=== PATIENT | female | born 1985 | race Caucasian/White ===

== ENCOUNTER 2018-05-28 05:50 | Inpatient (IN) | payer OTHER ==
[2018-05-28] MEDS ORDERED: TERBUTALINE 1 MG/ML VIAL SQ PRN (06:05)
[2018-05-28] MEDS ORDERED: LIDOCAINE 0.5% (PF) 5 MG/ML (50 ML SDV) SQ PRN (06:05)
[2018-05-28] MEDS ORDERED: METHYLERGONOVINE 0.2 MG/ML 1 ML AMP IM PRN (06:05)
[2018-05-28] MEDS ORDERED: OXYTOCIN 10 UNIT/ML 1 ML VIAL IM PRN (06:05)
[2018-05-28] MEDS ORDERED: CARBOPROST TROMETHAMINE 250 MCG/ML 1 ML AMP IM PRN (06:05)
[2018-05-28] MEDS ORDERED: OXYTOCIN 20 UNITS/1000 ML NS 1,000 ML IV SCH ×2 (06:15→18:00)
[2018-05-28] MEDS: LACTATED RINGERS 1,000 ML IV SCH ×3 (06:19→16:08)
[2018-05-28 06:22] LABS: Basophils % (A) 0 %; Eosinophils # (A) 0.1 k/uL (0-0.7); Eosinophils % (A) 2 %; HGB 12.6 gm/dL (11.4-16.0); Lymphocytes # (A) 2.1 k/uL (1.0-4.8); Lymphocytes % (A) 26 %; MCH 30.7 pg (25.0-35.0); MCHC 34.2 g/dL (31.0-37.0); MCV 89.7 fL (80.0-100.0); Mean Platelet Volume 10.2; Monocytes # (A) 0.4 k/uL (0-1.0); Monocytes % (A) 5 %; Neutrophils # (A) 5.2 k/uL (1.3-7.7); Neutrophils % (A) 65 %; Platelet Count 149 k/uL (150-450); RBC 4.13 m/uL (3.80-5.40); RDW 13.8 % (11.5-15.5)
[2018-05-28 06:37] VITALS: BMI 28.0
--- NOTE | 2018-05-28 08:41 | P.HPOB ---
History of Present Illness H&P Date: 05/28/18 Chief Complaint: IUP at 39 and 1/7 weeks This is a pleasant 32-year-old 3 para 2001 at 39 and one sevenths weeks with an estimated due date of June 03 based on a first trimester ultrasound. Patient has had routine care with myself since 11 weeks. Patient has a history of a LEEP in 2004. She is a nonsmoker and has been urged to quit throughout the . In addition she had a high-grade Pap has been followed every trimester with Paps last Pap was normal. Patient was found to have a single umbilical artery at her 20 week ultrasound growth and testing was instituted after 32 weeks and all normal in nature. Patient presents today for elective induction of labor On blood work blood type of O-, rubella immune, RPR nonreactive, hepatitis B surface antigen negative, HIV negative one hour Glucola screen 113, group beta strep negative on 05/01/18. Patient is been noting good movement denies contractions, vaginal bleeding , loss of fluid. Review of Systems Constitutional: Denies chills, Denies fatigue, Denies fever Ears, nose, mouth and throat: Denies headache Cardiovascular: Reports leg edema Respiratory: Denies dyspnea Gastrointestinal: Denies constipation, Denies diarrhea, Denies nausea, Denies vomiting Genitourinary: Reports Past Medical History Past Medical History: No Reported History History of Any Multi-Drug Resistant Organisms: None Reported Past Surgical History: No Surgical Hx Reported Past Anesthesia/Blood Transfusion Reactions: No Reported Reaction Past Psychological History: No Psychological Hx Reported Smoking Status: Never smoker Past Alcohol Use History: None Reported Past Drug Use History: None Reported - Past Family History Mother Family Medical History: Hypertension Medications and Allergies Home Medications Medication Instructions Recorded Confirmed Type Pedi Multivit No.25/Folic Acid 2 tab PO DAILY 05/28/18 05/28/18 History [Flintstones Multivit Chew Tab] Allergies Allergy/AdvReac Type Severity Reaction Status Date / Time No Known Allergies Allergy Verified 05/28/18 06:04 Exam Osteopathic Statement: *. No significant issues noted on an osteopathic structural exam other than those noted in the History and Physical/Consult. Vital Signs Temp Pulse Resp BP Pulse Ox 05/28/18 06:04 97.7 F 82 16 118/77 96 Intake and Output 05/27/18 05/28/1805/28/19 22:59 06:59 14:59 Other: Weight 69.4 kg Targeted physical exam in general this is a well-nourished well-developed female in no acute distress. She notes nonlabored breathing and lungs are clear to auscultation bilaterally, heart is noted to have regular rate and rhythm, abdomen soft and gravid and appropriate for gestational age. On initial cervical exam by myself she is 2 cm/50/-2 amniotomy was performed and clear fluid was obtained. Results Result Diagrams: 05/28/18 06:06 Abnormal Lab Results - Last 24 Hours (Table) 05/28/18 Range/Units 06:06 Plt Count 149 L (150-450) k/uL Assessment and Plan (1) Term Current Visit: Yes Status: Acute Code(s): Z34.80 - ENCOUNTER FOR SUPRVSN OF NORMAL , UNSP TRIMESTER SNOMED Code(s): 20369662 (2) Smoker Current Visit: Yes Status: Acute Code(s): F17.200 - NICOTINE DEPENDENCE, UNSPECIFIED, UNCOMPLICATED SNOMED Code(s): 41012506 (3) Single umbilical artery Current Visit: Yes Status: Acute Code(s): Q27.0 - CONGENITAL ABSENCE AND HYPOPLASIA OF UMBILICAL ARTERY SNOMED Code(s): 386667798 Plan: Patient was admitted to labor and delivery this morning and Pitocin induction of labor was begun. Amniotomy is performed and clear fluid was obtained. Patient does desire epidural for pain management. Anticipate normal spontaneous vaginal delivery later this afternoon.
[2018-05-28] MEDS ORDERED: BUTORPHANOL 1 MG/ML 1 ML VIAL IV PRN (11:45)
[2018-05-28] MEDS ORDERED: ROPIVACAINE 5MG/ML 20ML VIAL ONE (14:31)
[2018-05-28] MEDS ORDERED: SODIUM CHLORIDE 0.9% 100 ML BAG ONE (14:31)
[2018-05-28] MEDS ORDERED: fentaNYL (PF) 50 MCG/ML 5 ML AMP ONE (14:31)
[2018-05-28] MEDS ORDERED: ACETAMINOPHEN TAB 325 MG TAB PO PRN (17:56)
[2018-05-28] MEDS ORDERED: diphenhydrAMINE 25 MG CAP PO PRN (17:56)
[2018-05-28] MEDS ORDERED: LANOLIN CREAM 5 GM TUBE TOPICAL PRN (17:56)
[2018-05-28] MEDS ORDERED: SIMETHICONE 80 MG CHEWABLE PO PRN (17:56)
[2018-05-28] MEDS ORDERED: WITCH HAZEL 1 EACH MED..PAD TOPICAL PRN (17:56)
[2018-05-28] MEDS ORDERED: ZOLPIDEM 5 MG TAB PO PRN (17:56)
[2018-05-28] MEDS ORDERED: IBUPROFEN 600 MG TAB PO PRN (17:56)
[2018-05-28] MEDS ORDERED: HYDROCORTISONE 2.5% RECTAL CREAM 30 GM TUBE RECTAL PRN (17:56)
[2018-05-28] MEDS ORDERED: diphenhydrAMINE 50 MG CAP PO PRN (17:56)
[2018-05-28] MEDS ORDERED: BENZOCAINE/MENTHOL SPRAY 1 GM/SPRAY AEROSOL TOPICAL PRN (17:56)
[2018-05-28] MEDS ORDERED: diphenhydrAMINE 50 MG/ML 1 ML VIAL IVP PRN ×2 (17:56)
--- NOTE | 2018-05-28 17:59 | P.PROBDLV ---
Vaginal Delivery Note - . Vaginal Delivery Note: This is a very pleasant 32-year-old 3 para 2001 at 39 and one sevenths weeks that presented to labor and delivery for elective induction of labor. Patient was admitted Pitocin induction of labor was begun. Amniotomy was performed and clear fluid was obtained. Patient progressed throughout labor eventually becoming uncomfortable and receiving an epidural for analgesia. The epidural was placed without difficulty by anesthesia. Patient progressed through labor eventually becoming complete began pushing and had a normal spontaneous vaginal delivery of viable male at 1748. After 2 minute delay the umbilical cord is doubly clamped and cut and the placenta was delivered spontaneously intact with a three-vessel cord. Inspection the patient 's vaginal vault no lacerations were noted. The uterus was noted to be firm and below the umbilicus. Estimated blood loss for this delivery 200 mL Weight is pending as the infant is bonding with mom. Apgars noted to be 8 and 9 at one and 5 minutes respectively. Mom and baby tolerated delivery well and are resting comfortably
[2018-05-29] MEDS: SENNOSIDES-DOCUSATE SODIUM 1 EACH TAB PO SCH ×2 (03:57→08:00)
[2018-05-29 05:25] VITALS: RESP 18
[2018-05-29] MEDS ORDERED: Rhogam IMMUNE GLOBULIN 1,500 UNIT/1 ML IM ONE (05:36)
[2018-05-29 07:17] LABS: Basophils % (A) 0 %; Eosinophils # (A) 0.1 k/uL (0-0.7); Eosinophils % (A) 1 %; HGB 11.6 gm/dL (11.4-16.0); Lymphocytes # (A) 1.9 k/uL (1.0-4.8); Lymphocytes % (A) 18 %; MCH 30.1 pg (25.0-35.0); MCHC 33.1 g/dL (31.0-37.0); MCV 90.8 fL (80.0-100.0); Mean Platelet Volume 9.6; Monocytes # (A) 0.5 k/uL (0-1.0); Monocytes % (A) 5 %; Neutrophils # (A) 7.8 k/uL (1.3-7.7); Neutrophils % (A) 75 %; Platelet Count 142 k/uL (150-450); RBC 3.85 m/uL (3.80-5.40); RDW 13.9 % (11.5-15.5); WBC 10.4 k/uL (3.8-10.6)
--- NOTE | 2018-05-29 12:58 | P.DS ---
Providers Date of admission: 05/28/18 05:50 Expected date of discharge: 05/29/18 Attending physician: Yoon Feliz Primary care physician: Stated None - Discharge Diagnosis(es) (1) Term Current Visit: Yes Status: Acute (2) Smoker Current Visit: Yes Status: Acute (3) Single umbilical artery Current Visit: Yes Status: Acute Hospital Course: This is a very pleasant 32-year-old 3 para 2001 at 39 and 1/7 weeks with an estimated due date of June 03 patient for stress her ultrasound. Patient had routine care with myself since the first trimester. Patient elected induction. Patient elected induction yesterday 05/28 Patient was admitted to labor [facility] induction of labor was begun once regular contractions were noted amniotomy was performed and clear fluid was obtained. Patient pressed to labor eventually getting an epidural which was placed by anesthesia without difficulty. She progressed to complete began pushing and had normal spontaneous vaginal delivery of a viable male at 1748. Apgars of 8 and 9, weight 8 lbs. 4 oz. Fahad Patient's course has been uneventful. She is ambulating and voiding without difficulty. She denies pain. She denies concerns, and wishes discharge home today. Patient Condition at Discharge: Good Plan - Discharge Summary New Discharge Prescriptions: No Action Pedi Multivit No.25/Folic Acid [Flintstones Multivit Chew Tab] 2 tab PO DAILY Discharge Medication List Pedi Multivit No.25/Folic Acid [Flintstones Multivit Chew Tab] 2 tab PO DAILY [History] Follow up Appointment(s)/Referral(s): Yoon Feliz DO [Doctor of Osteopathic Medicine] - 4 Weeks Patient Instructions/Handouts: Vaginal Delivery (DC), Vaginal Delivery (GEN) Discharge Disposition: HOME SELF-CARE
[2018-05-29 18:21] VITALS: BP 132/68; PULSE 69; TEMP 98
== END 2018-05-29 18:56 | disposition home or self-care (01) | DRG 807 ==
LOC: 4FBP 05:50
PROVIDERS: ADMIT Obstetrics & Gynecology Obstetrics; ATTEND Obstetrics & Gynecology Obstetrics
PROC: 10E0XZZ Delivery of Products of Conception, External Approach (ICD-10-PCS; principal; 2018-05-28)
PROC: 3E033VJ Introduction of Other Hormone into Peripheral Vein, Percutaneous Approach (ICD-10-PCS; 2018-05-28)
PROC: 10907ZC Drainage of Amniotic Fluid, Therapeutic from Products of Conception, Via Natural or Artificial Opening (ICD-10-PCS; 2018-05-28)
PROC: 00HU33Z Insertion of Infusion Device into Spinal Canal, Percutaneous Approach (ICD-10-PCS; 2018-05-28)
PROC: 3E0R3BZ Introduction of Anesthetic Agent into Spinal Canal, Percutaneous Approach (ICD-10-PCS; 2018-05-28)
PROC: 3E0234Z Introduction of Serum, Toxoid and Vaccine into Muscle, Percutaneous Approach (ICD-10-PCS; 2018-05-29)
DX: O69.89X0 Labor and delivery complicated by other cord complications, not applicable or unspecified (principal); Z37.0 Single live birth; O99.334 Smoking (tobacco) complicating childbirth; F17.200 Nicotine dependence, unspecified, uncomplicated; Z3A.39 39 weeks gestation of pregnancy; Z82.49 Family history of ischemic heart disease and other diseases of the circulatory system; Z79.899 Other long term (current) drug therapy
CPT/HCPCS: 85025; 85461; 86850; 86870; 86880; 86900; 86901

== ENCOUNTER → 2018-07-19 | Outpatient (CLI) | payer OTHER ==
[2018-07-19 14:01] LABS: Basophils # (A) 0.1 k/uL (0-0.2); Basophils % (A) 1 %; Eosinophils # (A) 0.2 k/uL (0-0.7); Eosinophils % (A) 2 %; HCT 42.8 % (34.0-46.0); HGB 13.9 gm/dL (11.4-16.0); Lymphocytes # (A) 2.6 k/uL (1.0-4.8); Lymphocytes % (A) 29 %; MCH 29.1 pg (25.0-35.0); MCHC 32.5 g/dL (31.0-37.0); MCV 89.7 fL (80.0-100.0); Mean Platelet Volume 7.2; Monocytes # (A) 0.3 k/uL (0-1.0); Monocytes % (A) 4 %; Neutrophils # (A) 5.9 k/uL (1.3-7.7); Neutrophils % (A) 64 %; Platelet Count 193 k/uL (150-450); RBC 4.77 m/uL (3.80-5.40); RDW 13.5 % (11.5-15.5); WBC 9.1 k/uL (3.8-10.6)
== END ==
LOC: LABPAT 13:29
PROVIDERS: ATTEND Obstetrics & Gynecology Obstetrics
DX: Z01.812 Encounter for preprocedural laboratory examination (principal); Z33.1 Pregnant state, incidental; Z3A.00 Weeks of gestation of pregnancy not specified
CPT/HCPCS: 85025

== ENCOUNTER 2018-07-29 07:00 | Day surgery (SDC) | payer OTHER ==
[2018-07-23 12:30] VITALS: BMI 23.2
--- NOTE | 2018-07-28 14:54 | HP ---
HISTORY AND PHYSICAL HISTORY OF PRESENT ILLNESS: This is a very pleasant 32-year-old 3, para 3 that presents for consult on permanent sterilization. Patient has had 3 prior vaginal deliveries and desires permanent sterilization. PAST MEDICAL HISTORY: Noncontributory. PAST SURGICAL HISTORY: Is significant for a LEEP procedure done in May of 2004. ALLERGIES: No known drug allergies. FAMILY HISTORY: Is noncontributory. APARTMENT LEASING AGENT HISTORY: She had menarche at age 13. Her periods are noted to be regular every month with a moderate flow. As stated above, she is a 3, para 3-0-0-3 with 3 prior vaginal deliveries. SOCIAL HISTORY: She is a smoker and drinks alcohol socially and denies illicit drug use. REVIEW OF SYSTEMS: 1. She denies fevers, chills, body aches or night sweats. 2. She denies urgency, urinary urgency, frequency, menorrhagia, dysmenorrhea, psychiatric she denies anxiety or depression. PHYSICAL EXAMINATION: Vital signs are stable. Physical exam in general, this is a well-nourished, well-developed, alert female in no acute distress. On GI exam her abdomen is noted to be soft, nontender with no masses. GENITOURINARY: Her external genitalia is noted to be normal for age with no lesions. The vaginal vault is noted to be pink and well rugated. The bladder is nontender with no sign of cystocele. The urethra is normal. Cervix is noted to be normal with no lesions. The uterus is normal size, nontender, and mobile. There are no adnexal masses. ASSESSMENT: Family status complete, desires permanent sterilization. PLAN: Patient desires laparoscopic tubal ligation for permanent sterilization. Procedure is reviewed with the patient in detail. Her questions are answered. Risks are reviewed including, but not limited to infection, bleeding, damage to bladder, bowel, ureteric or other peripelvic structures. Risks of anesthesia were reviewed. Patient states understanding of these risks and informed consent is obtained. The patient desires procedure and we will proceed. MMODL / IJN: [id number] /
[~2018-07-29 07:00] MED LIST: DEXAMETHASONE SOD PHOSPHATE 10 MG/ML 1 ML VIAL IV ONE; HYDROmorphone 0.5 MG/0.5 ML SYRINGE IVP PRN; LACTATED RINGERS 1,000 ML IV SCH; MORPHINE SULFATE 4 MG/ML SYRINGE IV PRN; ONDANSETRON 4 MG/2 ML VIAL IVP ONE; Pre Op ABX Message 1 EACH MISC MISCELLANE ONE
[2018-07-29] MEDS ORDERED: ONDANSETRON 4 MG/2 ML VIAL IVP ONE (07:26)
[2018-07-29] MEDS ORDERED: LIDOCAINE 1% 20 ML VIAL (10MG/ML) FOR IV START INTRADERMA ONE (07:26)
[2018-07-29] MEDS ORDERED: DEXAMETHASONE SOD PHOS (MDV) 100 MG/10 ML VIAL IV ONE (07:27)
[2018-07-29] MEDS ORDERED: BUPIVACAINE (PF) 0.5% 30 ML VIAL SQ ONE (09:00)
[2018-07-29] MEDS ORDERED: LIDOCAINE URO-JET JELLY 2% 5 ML KIT URETHRAL ONE (09:00)
[2018-07-29] MEDS ORDERED: ROCURONIUM BROMIDE 10 MG/ML 10 ML VIAL IV ONE (09:01)
[2018-07-29] MEDS ORDERED: fentaNYL (PF) 50 MCG/ML 2 ML AMP ONE (09:01)
[2018-07-29] MEDS ORDERED: PROPOFOL 10 MG/ML 20 ML VIAL IV ONE (09:01)
[2018-07-29] MEDS ORDERED: SUCCINYLCHOLINE CHLORIDE 100 MG/5 ML SYR IV ONE (09:01)
[2018-07-29] MEDS ORDERED: LIDOCAINE 1% INJ 10MG/ML (20 ML MDV) ONE (09:01)
[2018-07-29] MEDS ORDERED: ACETAMINOPHEN IV (For NPO) 1,000 MG/100 ML VIAL ONE (09:01)
[2018-07-29] MEDS ORDERED: GLYCOPYRROLATE 0.2 MG/ML 2 ML VIAL ONE (09:01)
[2018-07-29] MEDS ORDERED: MIDAZOLAM 2 MG/2 ML VIAL ONE (09:01)
[2018-07-29] MEDS ORDERED: NEOSTIGMINE 1 MG/ML 10 ML VIAL ONE (09:01)
--- NOTE | 2018-07-29 09:49 | P.OP ---
Date of Procedure: 07/29/18 Preoperative Diagnosis: Undesired fertility, family status complete Postoperative Diagnosis: Same Procedure(s) Performed: Laparoscopic tubal ligation with Falope-Rings Anesthesia: ELVIS Surgeon: Yoon Feliz Estimated Blood Loss (ml): 5 IV fluids (ml): 300 Urine output (ml): 50 Pathology: none sent Condition: stable Disposition: PACU Indications for Procedure: Patient request for permanent sterilization Operative Findings: Normal uterus tubes and ovaries are appreciated. Description of Procedure: Patient is seen in the preoperative area and once again to permanent steril ization as requested. Risks were reviewed with the patient including but not limited to infection, bleeding, damage to bladder, bowel, ureteric or other pelvic structures patient stated understanding and wished to proceed. Patient was taken back to the operating suite where general anesthesia was obtained without difficulty by the anesthesia department. She was then prepped and draped in normal sterile fashion in the dorsal lithotomy position. A red rubber catheter was then used to drain the bladder of approximately 50 mL of clear yellow urine. A speculum was then placed the anterior cervix was visualized grasped with a single-tooth tenaculum and an acorn uterine manipulator was advanced into the cervix as a means to manipulate the uterus throughout the procedure. Attention was then turned the patient's abdomen where in the umbilical fold a small skin incision is made through this incision the Veress needle was placed. Once the Veress needle was deemed to be in the appropriate position with a drop in CO2 pressure with insufflation of CO2 gas CO2 insufflation was allowed to occur. Approximately 3 L of gas were used to obtain pneumoperitoneum. At this time a 5 mm trocar with the laparoscope in place was placed through the skin incision and toward the pneumoperitoneum. The above noted findings were visualized. An additional port site was placed in the right lower quadrant of OM ASIS. This is an 11 mm trocar and postoperative direct visualization. The patient's left fallopian tube was then grasped with the Falope ring applicator and operated according to sales assistant entertainment and media's instructions. This was then repeated on the right fallopian tube. Good blanching was noted on both tubes at this time all instruments were removed from the patient's abdomen skin incisions were closed with 4-0 Vicryl in a subcuticular fashion. The single-tooth tenaculum was taken off of the anterior lip of the cervix and no bleeding was noted. All counts were correct 2 patient tolerated procedure well and was taken the recovery room awake in stable condition.
[2018-07-29 10:14] VITALS: TEMP 97
[2018-07-29 10:21] VITALS: RESP 16
[2018-07-29 11:17] VITALS: BP 116/83; PULSE 60
== END 2018-07-29 11:46 | disposition home or self-care (01) ==
LOC: OR 07:00
PROVIDERS: ATTEND Obstetrics & Gynecology Obstetrics
DX: Z30.2 Encounter for sterilization (principal); F17.200 Nicotine dependence, unspecified, uncomplicated
CPT/HCPCS: 81025; 58671; J2250; J2710; J2405; J2001; J3010; J1100; J0131; J0330; J2704

== ENCOUNTER → 2019-11-03 | Outpatient (CLI) | payer OTHER ==
[2019-11-03 08:28] LABS: Basophils % (A) 1 %; Eosinophils # (A) 0.2 k/uL (0-0.7); Eosinophils % (A) 3 %; HCT 42.2 % (34.0-46.0); HGB 13.7 gm/dL (11.4-16.0); Lymphocytes # (A) 1.9 k/uL (1.0-4.8); Lymphocytes % (A) 29 %; MCHC 32.4 g/dL (31.0-37.0); MCV 89.5 fL (80.0-100.0); Mean Platelet Volume 8.5; Monocytes # (A) 0.3 k/uL (0-1.0); Monocytes % (A) 4 %; Neutrophils # (A) 4.2 k/uL (1.3-7.7); Neutrophils % (A) 63 %; Platelet Count 178 k/uL (150-450); RBC 4.71 m/uL (3.80-5.40); RDW 13.2 % (11.5-15.5); WBC 6.6 k/uL (3.8-10.6)
[2019-11-03 08:50] LABS: African American GFR (CKD) >90 (>60 ml/min/1.73 sqM); Anion Gap 5 mmol/L; Blood Urea Nitrogen 7 mg/dL (7-17); Carbon Dioxide 24 mmol/L (22-30); Chloride 108 mmol/L (98-107); Glucose 104 mg/dL (74-99); Non-African American GFR(CKD) >90 (>60 ml/min/1.73 sqM); Potassium 4.1 mmol/L (3.5-5.1); Sodium 137 mmol/L (137-145)
== END | disposition home or self-care (01) ==
LOC: LABWHC1 08:04
PROVIDERS: ATTEND Obstetrics & Gynecology Obstetrics
DX: Z01.818 Encounter for other preprocedural examination (principal); N87.1 Moderate cervical dysplasia; R10.32 Left lower quadrant pain
CPT/HCPCS: 36415; 80051; 82565; 82947; 84520; 85025; 86850; 86900; 86901; 87086

== ENCOUNTER 2019-11-11 06:04 | Day surgery (SDC) | payer OTHER ==
[2019-11-07 15:01] VITALS: BMI 21.5
--- NOTE | 2019-11-10 09:50 | P.HPOB ---
History of Present Illness H&P Date: 11/10/19 Chief Complaint: LLQ pain, HPV pos 16/18 with multiple abnormal paps, AUB This is a 34yo that presents for scheduled RAVH/DC. pt has a history of irregular menses and has tried multiple things for her bleeidng currently on depo provera. she is a noted history of abnormal paps, HGSIL, and noted positive HPV 18/45. she has had multiple colposcopies?LEEP procedure due to abnomral paps. she is desirous of definitive treatment given her abnormal pap history and HPV status. US was completed secondary to a long standing history of LLQ pain in addition. she has a slightly enlarged uterus with suspicion of adneomyosis. she underwent TL but subsequently had to start depo provera for HMB. normal ovaries were visualized on US with exception of right ovarian simple cyst. she denies any bowel or bladder concerns. Review of Systems Constitutional: Denies chills, Denies fatigue, Denies fever Ears, nose, mouth and throat: Denies headache Cardiovascular: Denies edema Respiratory: Denies dyspnea Gastrointestinal: Denies constipation, Denies diarrhea, Denies nausea, Denies vomiting Genitourinary: Reports menorrhagia, Denies Integumentary: Denies rash Psychiatric: Denies anxiety, Denies depression Past Medical History Past Medical History: No Reported History Additional Past Medical History / Comment(s): frequent abd. pain for last few years History of Any Multi-Drug Resistant Organisms: None Reported Past Surgical History: Tubal Ligation Past Anesthesia/Blood Transfusion Reactions: No Reported Reaction Smoking Status: Current every day smoker - Past Family History Mother Family Medical History: Hypertension Medications and Allergies Home Medications Medication Instructions Recorded Confirmed Type Cholecalciferol [Vitamin D3 (25 1,000 unit PO DAILY 11/07/19 11/07/19 History Mcg = 1000 Iu)] Cyanocobalamin (Vitamin B-12) 1,000 mcg PO DAILY 11/07/19 11/07/19 History [Vitamin B-12] Allergies Allergy/AdvReac Type Severity Reaction Status Date / Time No Known Allergies Allergy Verified 11/07/19 14:58 Exam Osteopathic Statement: *. No significant issues noted on an osteopathic structural exam other than those noted in the History and Physical/Consult. targeted exam done in general this is a well nourished well developed female in NAD, breathing is noted to be non labored and heart has a RRR. abdomen is soft and NT/ND. on pelvic exam external genitalia is noted to be normal for age no lesions, vaginal rugae is pink and well rugated, cervix is friable in nature, uterus is mobile and midline, no adnexal masses are appreciated. Assessment and Plan (1) Human papilloma virus Status: Acute Code(s): B97.7 - PAPILLOMAVIRUS THE CAUSE OF DISEASES CLASSIFIED ELSEWHERE SNOMED Code(s): 786525268 (2) Abnormal cervical cytology Status: Acute Code(s): R87.619 - UNSP ABNORMAL CYTOLOG FINDINGS IN SPECMN FROM CERVIX UTERI SNOMED Code(s): 370721339 (3) LLQ pain Status: Acute Code(s): R10.32 - LEFT LOWER QUADRANT PAIN SNOMED Code(s): 172475741 (4) Menorrhagia Status: Acute Code(s): N92.0 - EXCESSIVE AND FREQUENT MENSTRUATION WITH REGULAR CYCLE SNOMED Code(s): 732559363 Plan: this 34yo is schedule for RAVH/DC with possible LSO possible open to complete procedure. risks are reviewed including but not limited to infection bleeding damage to bladder,bowel or ureteric injury. she states understanding and wishes to proceed. questions are answered to patient satisfaction.
[~2019-11-11 06:04] MED LIST changes: +ACETAMINOPHEN IV (For NPO) 1,000 MG in EMPTY BAG 1 BAG IVPB ONE; -HYDROmorphone 0.5 MG/0.5 ML SYRINGE IVP PRN; -LACTATED RINGERS 1,000 ML IV SCH; +MIDAZOLAM 2 MG/2 ML VIAL IV PRN; -MORPHINE SULFATE 4 MG/ML SYRINGE IV PRN; -Pre Op ABX Message 1 EACH MISC MISCELLANE ONE
[2019-11-11] MEDS: LACTATED RINGERS 1,000 ML IV SCH ×2 (06:28→19:51)
[2019-11-11] MEDS ORDERED: ONDANSETRON 4 MG/2 ML VIAL ONE (06:29)
[2019-11-11] MEDS ORDERED: GLYCOPYRROLATE 0.2 MG/ML 2 ML VIAL ONE (07:25)
[2019-11-11] MEDS ORDERED: NEOSTIGMINE 1 MG/ML 10 ML VIAL ONE (07:25)
[2019-11-11] MEDS ORDERED: fentaNYL (PF) 50 MCG/ML 2 ML AMP ONE (07:25)
[2019-11-11] MEDS ORDERED: LIDOCAINE 1% INJ 10MG/ML (20 ML MDV) ONE (07:25)
[2019-11-11] MEDS ORDERED: MIDAZOLAM 2 MG/2 ML VIAL ONE (07:25)
[2019-11-11] MEDS ORDERED: HYDROmorphone (PF) 1 MG/ML ONE (07:25)
[2019-11-11] MEDS ORDERED: ROCURONIUM BROMIDE 10 MG/ML 5 ML VIAL IV ONE (07:25)
[2019-11-11] MEDS ORDERED: PROPOFOL 10 MG/ML 20 ML VIAL IV ONE (07:25)
[2019-11-11] MEDS ORDERED: Acetaminophen-Codeine 300-30mg TAB PO PRN ×2 (07:46)
[2019-11-11] MEDS ORDERED: SIMETHICONE 80 MG CHEWABLE PO PRN (07:46)
[2019-11-11] MEDS ORDERED: ONDANSETRON 4 MG/2 ML VIAL IVP PRN (07:46)
[2019-11-11] MEDS ORDERED: IBUPROFEN 600 MG TAB PO PRN (07:46)
[2019-11-11] MEDS ORDERED: BUPIVACAINE (PF) 0.25% 30 ML VIAL SQ ONE (08:29)
--- NOTE | 2019-11-11 09:20 | P.OP ---
Date of Procedure: 11/11/19 Anesthesia: ELVIS Surgeon: Yoon Feliz Chairman & Ceo #1: Harley Simpson Estimated Blood Loss (ml): 50 IV fluids (ml): 1,000 Urine output (ml): 100 Pathology: other (Uterus cervix bilateral salpingectomy) Condition: stable Disposition: PACU Indications for Procedure: This pleasant 34-year-old female has a long-standing history of abnormal Pap smears and known positive HPV 18/45. Patient has been struggling with irregular menstrual bleeding has currently been placed on Depakote. Patient has noted chronic left lower quadrant pain in addition. Patient desires definitive treatment with hysterectomy as she is done with childbearing and has had a tubal ligation in the past. Operative Findings: Globular spongy uterus suspicious for adenomyosis was noted upon entering the abdomen. Bilateral ovaries were noted to be normal grossly, on cystoscopy the bladder was noted to be intact, bladder bubbles noted both ureteral orifices were noted be spilling clear yellow urine. Description of Procedure: Patient was seen in the preoperative area and informed consent was obtained. Patient is taken back to the operating suite where general anesthesia was obtained without difficulty by the anesthesia department. She was then prepped and draped in normal sterile fashion in the dorsal lithotomy position. A Sepulveda catheter was placed under sterile technique. A weighted speculum was placed in the posterior vaginal vault intralipids the cervix is visualized and grasped with a single-tooth tenaculum. Endocervical canal was dilated and a V care uterine macular was placed. Allis was removed from the patient's vaginal vault at this time. Attention was then turned the patient's abdomen where a proximally 1 fingerbreadth above the umbilicus a small skin incision is made. Through this incision the Veress needle is placed. Once the Veress needle was deemed appropriate position with a drop of CO2 pressure with insufflation of CO2 gas CO2 insufflation was allowed to occur. Approximately 3 L of gas were used to obtain pneumoperitoneum. At this time the da Mayte 8 mm camera port is placed under direct visualization with the laparoscope in place. The above- noted findings are visualized. At this time the additional port sites are placed at 10 cm lateral and 3 cm inferior to midline port these are 8 mm ports and operative through the da Mayte machine. In the left upper quadrant 12 mm trocar and sleeve is placed under direct visualization. Attention was then turned to the patient's left fallopian tube which was grasped coagulated and transected hemostasis was appreciated. The uterine ovarian ligament was visualized coagulated distally and proximally and divided. This continued through the broad and toward the round which was coagulated distally and proximal plane divided. The bladder flap from the left was then created using sharp and blunt dissection. Attention was then turned to the patient's right fallopian tube which was grasped coagulated and transected the uterine ovarian ligament was visualized coagulated distally and proximal plane divided this continued through the broad and toward the round which was coagulated distally and proximal plane divided. The bladder flap from the right was created using sharp and blunt dissection. A Ray-Aleena was then introduced into the abdomen to push the bladder away from the operating field. At this time the descending branch of the uterine artery from the right was visualized coagulated distally and proximally and divided. This was then repeated on the left. Hemostasis was appreciated. At this time the only remaining attachment was a vaginal lori chment therefore colpotomy incision was made in a circumferential fashion the uterus cervix fallopian tubes were delivered through the vaginal opening. The pelvis was then copiously irrigated and the vaginal cuff was closed with 0 Vicryl with [id number] sutures. Approximate for [id number]-pw-[id number] sutures were used to obtain closure. Hemostasis was appreciated. FloSeal was placed along the vaginal cuff. Both ureters were noted to be pulsating normal fashion prior to leaving the abdomen. At this time all instruments were removed from the patient's abdomen and the da Mayte robot was undocked in the usual fashion. Attention was then turned to the patient's Sepulveda catheter which was removed without difficulty. The cystoscope was then performed. Cystoscope was placed through the urethra and toward the bladder bladder bubble was visualized along with bilateral spillage of clear yellow urine. The Sepulveda was then replaced after the cystoscopy was complete. The skin incisions were closed with 4-0 Vicryl in a subcuticular fashion. Steri-Strips and sterile dressings were applied as needed. Patient tolerated procedure well All counts are correct 2.
[2019-11-11] MEDS: HYDROmorphone 0.5 MG/0.5 ML SYRINGE IVP PRN ×2 (09:53→10:02)
[2019-11-11] MEDS ORDERED: ONDANSETRON 4 MG/2 ML VIAL IVP ONE (10:00)
[2019-11-11] MEDS ORDERED: LACTATED RINGERS 1,000 ML IV ONE (10:20)
[2019-11-11] MEDS ORDERED: IBUPROFEN IV 800 MG in SODIUM CHLORIDE 0.9% 250 ML IV ONE (11:00)
[2019-11-11 18:11] VITALS: RESP 16
[2019-11-11] MEDS ORDERED: SENNOSIDES-DOCUSATE SODIUM 1 EACH TAB PO SCH (21:00)
[2019-11-12] MEDS ORDERED: IBUPROFEN ORAL SUSP 100 MG/5 ML CUP PO PRN (05:28)
[2019-11-12 05:50] LABS: Basophils % (A) 0 %; Eosinophils # (A) 0.2 k/uL (0-0.7); Eosinophils % (A) 2 %; HCT 36.9 % (34.0-46.0); HGB 12.2 gm/dL (11.4-16.0); Lymphocytes # (A) 2.7 k/uL (1.0-4.8); Lymphocytes % (A) 33 %; MCH 29.5 pg (25.0-35.0); MCHC 33.1 g/dL (31.0-37.0); Mean Platelet Volume 8.7; Monocytes # (A) 0.3 k/uL (0-1.0); Monocytes % (A) 4 %; Neutrophils # (A) 4.9 k/uL (1.3-7.7); Neutrophils % (A) 60 %; Platelet Count 154 k/uL (150-450); RBC 4.15 m/uL (3.80-5.40); RDW 13.2 % (11.5-15.5); WBC 8.2 k/uL (3.8-10.6)
--- NOTE | 2019-11-12 08:32 | P.DS ---
Providers Date of admission: 11/11/2019 Expected date of discharge: 11/12/19 Attending physician: Yoon Feliz Primary care physician: Ed Bowden - Discharge Diagnosis(es) (1) Human papilloma virus Current Visit: No Status: Acute (2) Abnormal cervical cytology Current Visit: No Status: Acute (3) LLQ pain Current Visit: No Status: Acute (4) Menorrhagia Current Visit: No Status: Acute (5) S/P laparoscopic hysterectomy Current Visit: Yes Status: Acute Hospital Course: This pleasant 34-year-old female presented yesterday for scheduled robotic- assisted vaginal hysterectomy with bilateral salpingectomy, diagnostic cystoscopy. Patient had been struggling with heavy menstrual bleeding, chronic left lower quadrant pain and long-standing history of abnormal Pap smears with known HPV +18/45. Patient was done with childbearing and had a subsequent tubal ligation prior to this procedure. Patient desired definitive treatment as she has failed multiple medical modalities for her bleeding/pain. Patient underwent robotic cyst vaginal hysterectomy with bilateral salpingectomy, diagnostic cystoscopy without difficulty. For full details on the surgery please see the operative report. Patient's postoperative course has been uneventful. On this postoperative day #1 she is ambulating and voiding without difficulty. She is tolerating a regular diet without nausea or vomiting. She states her pain is controlled with oral ibuprofen, liquid. She denies vaginal bleeding. She notes positive flatus and wishes discharge home. Patient Condition at Discharge: Good Plan - Discharge Summary Discharge Rx Participant: Yes New Discharge Prescriptions: No Action Cholecalciferol [Vitamin D3 (25 Mcg = 1000 Iu)] 1,000 unit PO DAILY Cyanocobalamin (Vitamin B-12) [Vitamin B-12] 1,000 mcg PO DAILY Discharge Medication List Cholecalciferol [Vitamin D3 (25 Mcg = 1000 Iu)] 1,000 unit PO DAILY 11/07/19 [History] Cyanocobalamin (Vitamin B-12) [Vitamin B-12] 1,000 mcg PO DAILY 11/07/19 [History] Follow up Appointment(s)/Referral(s): Yoon Feliz DO [Doctor of Osteopathic Medicine] - 2 Weeks Patient Instructions/Handouts: Laparoscopic Hysterectomy (DC), Laparoscopic Hysterectomy (GEN) Activity/Diet/Wound Care/Special Instructions: No tub baths or intercourse until 6-8 weeks postoperatively, when she is cleared by myself. Patient is to continue with liquid ibuprofen as needed for discomfort. Patient may experience some vaginal spotting, bleeding through the postoperative period. Discharge Disposition: HOME SELF-CARE
[2019-11-12 09:19] VITALS: BP 102/62; PULSE 65; TEMP 98.8
== END 2019-11-12 11:10 | disposition home or self-care (01) ==
LOC: OR 06:04 → 4FBP 09:29 → OR 11-12 11:10
PROVIDERS: ATTEND Obstetrics & Gynecology Obstetrics
DX: A63.0 Anogenital (venereal) warts (principal); N87.0 Mild cervical dysplasia; N83.201 Unspecified ovarian cyst, right side; N72 Inflammatory disease of cervix uteri; N80.0 Endometriosis of uterus; Z79.3 Long term (current) use of hormonal contraceptives; Z98.51 Tubal ligation status; F17.200 Nicotine dependence, unspecified, uncomplicated; G89.29 Other chronic pain
CPT/HCPCS: 81025; 85025; 58570; 52000; C1762; J1100; J0690; J2405; J0131; J1741; J1170; 86850; 86900; 86901; 88307

== ENCOUNTER → 2021-02-23 | Outpatient (CLI) | payer OTHER ==
--- NOTE | 2021-02-25 09:45 | MM ---
Reason for exam: screening (asymptomatic). Baseline mammogram. History: Patient is postmenopausal. Family history of breast cancer in maternal grandmother and breast cancer in 2 maternal aunts. Took hormonal contraceptives for 18 years. Physical Findings: Nurse did not find any significant physical abnormalities on exam. MG Screening Mammo w CAD Bilateral CC and MLO view(s) were taken. The breast tissue is extremely dense which could obscure a lesion on mammography. There is no discrete abnormality. ASSESSMENT: Negative, BI-RAD 1 RECOMMENDATION: Routine screening mammogram of both breasts at age 40. Some consider bilateral ultrasound surveillance in patient with extremely dense fibroglandular tissue.
== END | disposition home or self-care (01) ==
LOC: RADMAMWWP 13:56
PROVIDERS: ATTEND Family Medicine
DX: Z12.31 Encounter for screening mammogram for malignant neoplasm of breast (principal); Z78.0 Asymptomatic menopausal state; Z80.3 Family history of malignant neoplasm of breast
CPT/HCPCS: 77067

== ENCOUNTER → 2022-03-15 | Outpatient (CLI) | payer OTHER ==
--- NOTE | 2022-03-15 12:54 | US ---
EXAMINATION TYPE: US pelvic complete DATE OF EXAM: 03/15/2022 COMPARISON: NONE CLINICAL HISTORY: R10.2 PELVIC AND PERINEAL PAIN. Bilateral pelvic pain, h/o ov cysts, hysterectomy 2 years ago TECHNIQUE: TA. Transabdominal sonographic images of the pelvis were acquired. Date of LMP: hysterectomy 2 years ago EXAM MEASUREMENTS: Uterus: Surgically absent Endometrial Stripe: Surgically absent Right Ovary: 3.7 x 2.1 x 1.8 cm Left Ovary: 2.8 x 1.9 x 2.5 cm 1. Uterus: Surgically absent 2. Endometrium: Surgically absent 3. Right Ovary: wnl 4. Left Ovary: wnl 5. Bilateral Adnexa: wnl 6. Posterior cul-de-sac: wnl Uterus surgically absent. No free fluid. Ovaries symmetric and within normal limits in size with a few small peripheral follicles seen bilater ally. IMPRESSION: No suspicious adnexal masses.
== END | disposition home or self-care (01) ==
LOC: RADUSWWP 12:12
PROVIDERS: ATTEND Family Medicine
DX: R10.2 Pelvic and perineal pain (principal)
CPT/HCPCS: 76856